=== PATIENT | male | born 1980 | race Caucasian/White ===

== ENCOUNTER 2023-11-20 12:42 | Emergency (ER) | payer MEDICAID, OTHER ==
[~2023-11-20] VITALS: Ht 170.2 cm; Wt 91.4 kg
[2023-11-20] MEDS ORDERED: DOXY-286 PO (14:07)
[2023-11-20 14:17] LABS: Urine Bacteria None Seen /hpf (None Seen)
[2023-11-20] MEDS: DOXYCYCLINE 100 MG TAB/CAP PO ONE (15:12)
[2023-11-20] MEDS: LIDOCAINE 1% HCL (LOCAL ANESTH.) INJ 20ML MDV ONE (15:12)
[2023-11-20] MEDS: cefTRIAXone SOD 1,000 MG VL IM ONE (15:12)
[2023-11-20] MEDS: cefTRIAXone W LIDOCAINE 500 MG IM IM ONE (15:12)
[2023-11-20 15:18] VITALS: BP 130/74; PULSE 95; RESP 18; TEMP 98.6; O2SAT 97
[2023-11-20 15:18] LABS: Urine Blood Negative /uL (Negative); Urine Clarity Clear (Clear); Urine Color Yellow (Yellow); Urine Mucus FEW (None Seen); Urine Protein, UAD Negative (Negative); Urine Specific Gravity 1.029 (1.001-1.035); Urine Urobilinogen Normal (Negative); Urine WBC 48 /hpf (0 - 3)
== END 2023-11-20 15:20 | disposition home or self-care (01) ==
LOC: ER 12:42
DX: R36.9 Urethral discharge, unspecified (principal); R30.0 Dysuria; Z88.5 Allergy status to narcotic agent
CPT/HCPCS: 81001; 87491; 87591; 96372; 99283; J0696; J2001

== ENCOUNTER 2024-12-02 07:03 | Emergency (ER) | payer MEDICAID ==
[~2024-12-02] VITALS: Ht 170.2 cm; Wt 87.9 kg
[~2024-12-02 07:03] MED LIST: DOXY-286 PO
[2024-12-02 07:16] VITALS: BP 125/97; PULSE 99; RESP 17; TEMP 98; O2SAT 97
--- NOTE | 2024-12-03 06:35 | ECG ---
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
== END 2024-12-02 08:25 | disposition left against medical advice (07) ==
LOC: ER 07:03
DX: R07.89 Other chest pain (principal); Z53.21 Procedure and treatment not carried out due to patient leaving prior to being seen by health care provider
CPT/HCPCS: 93005

== ENCOUNTER 2025-02-12 03:51 | Emergency (ER) | payer SELFPAY ==
[~2025-02-12] VITALS: Ht 170.2 cm; Wt 90.0 kg
--- NOTE | 2025-02-12 04:01 | ED.PDOC ---
Eye-HPI HPI Comments pt came to the er with cc of ear ache x2day 12/27 pain, pt is a&ox4 rr even and regular no distress noted at this time. pt denies n/v/d cp sob, OR DIZZINESS Chief Complaint: Earache Time Seen by MD: 03:53 Primary Care Provider: JESSICA Reviewed Notes: Nurses Notes, Medications, Allergies Allergies: Coded Allergies: NO KNOWN ALLERGIES (Unverified , 02/12/25) Home Meds Active Scripts Acxphmzn-Wkbivjcbk-Jk (Otic) (Cortisporin Otic Susp) [address], 4 DROP LEFT EAR TID for 7 Days, #10 ML Prov:ROSAURA GARDINER [facility] 02/12/25 Fenofibrate (FENOFIBRATE) 145 Mg Tab, 1 TAB PO DAILY for 30 Days, #30 TAB Prov:ROSAURA GARDINER [facility] 02/12/25 Doxycycline Hyclate (DOXYCYCLINE HYCLATE) 100 Mg Tab, 100 MG PO BID for 7 Days, #14 TAB Prov:RAMO LANDRY MD 11/20/23 Information Source: Patient Mode of Arrival: Ambulatory Past Medical History PAST MEDICAL HISTORY: Denies Surgical History: Denies all surgeries Family History Family History: Reviewed,noncontributory to illness Social History Smoker: Non-Smoker Alcohol: Denies ETOH Use Drugs: Denies Drug Use Lives In: Home All Other Systems: Reviewed and Negative (SEE HPI) Physical Exam General Appearance: No Apparent Distress, Normal HEENT: Pharynx Normal, TMs Normal, Other (EAR CANAL EDEMATOUS WITH ERYTHEMA NO NOTED DRAINAGE TM INTACT) Neck: Full Range of Motion, Non-Tender Respiratory: Lungs Clear, No Respiratory Distress, Normal Breath Sounds Cardiovascular: JVD, No Edema, No Murmur, Normal Peripheral Pulses, Regular Rate/Rhythm Breast Exam: Deferred Gastrointestinal: Non Tender, Soft Genitalia: Deferred Pelvic: Deferred Rectal: Deferred Extremities: Normal capillary refill, Normal range of motion Musculoskeletal : Apperance: Normal Neurologic: Alert, No Motor Deficits, Normal Affect, Normal Mood, No Sensory Deficits Cerebellar Function: Normal Reflexes: NOT DONE Skin: Dry, Normal Color, Warm Lymphatic: No Adenopathy Was a procedure done? Was a procedure done?: No EENT DIFF Eye: N/A Ear: Cerumen Impaction, Foreign Body, Otitis Externa, Barotrauma, Otitis Media, Perforation, Dental, Pharyngitis X-Ray, Labs, Meds, VS Vital Signs Date Time Temp Pulse Resp B/P (MAP) Pulse Ox O2 Delivery O2 Flow Rate FiO2 02/12/25 03:53 97.9 89 18 157/101 100 97.9 X-Ray, Labs, Meds, VS Comment GIVEN AZITHROMYCIN AND PREDNISONE ALSO NORCO FOR THE PAIN SCRIPT TRIAL OF ANTIBIOTIC DROPS ADVISED TO TAKE MEDICATION PRESCRIBED SIDE EFFECTS DISCUSSED ADVISED TO AVOID UNDER WATER ACTIVITY WHILE WITH INFECTION. FOLLOW UP WITH YOUR PCP IN 2-3 DAYS NECESSARY ER RETURN PRECAUTIONS GIVEN PATIENT INDICATES UNDERSTANDING AGREES WITH DISCHARGE PLAN OF CARE Time of 1ST Reevaluation: 04:01 Reevaluation 1ST: Unchanged Time of 2ND Reevaluation: 04:28 Reevaluation 2ND: Improved Patient Education/Counseling: Diagnosis, Treatment, Prognosis, Need For Follow Up Family Education/Counseling: No Family Present SEPSIS Sepsis Screen Date sepsis recognized/suspect: Feb 12, 2025 Time Sepsis recognized/suspect: 0357 Recent Procedure: No On Antibiotic Therapy: No Respiratory Rate >20: No Heart Rate >90: No Temp<36 C (96.8 F) or >38.3 C: No SBP <90 or MAP <65 mmHG: No New Acute Mental Status Change: No Is the patient on CPAP, BIPAP,: No Vital Signs Date Time Temp Pulse Resp B/P (MAP) Pulse Ox O2 Delivery O2 Flow Rate FiO2 02/12/25 03:53 97.9 89 18 157/101 100 97.9 Departure 1 Departure Time of Disposition: 04:28 Impression: Primary Impression: Otitis externa Qualified Codes: H60.502 - Unspecified acute noninfective otitis externa, left ear Disposition: 01 HOME / SELF CARE / HOMELESS Condition: Stable e-Prescriptions Vmatoczy-Iiwovddde-Oa (Otic) (Cortisporin Otic Susp) [address] 4 DROP LEFT EAR TID for 7 Days, #10 ML Prov: ROSAURA GARDINER 02/12/25 Fenofibrate (FENOFIBRATE) 145 Mg Tab 1 TAB PO DAILY for 30 Days, #30 TAB Prov: ROSAURA GARDINER 02/12/25 Discharged With: Self Critical Care Note Critical Care Time?: No Stability Stability form required: ROSAURA Valle Feb 12, 2025 04:01
[2025-02-12] MEDS ORDERED: FENO145T27 PO (04:31)
[2025-02-12] MEDS ORDERED: COROSUS LEFT EAR (04:31)
[2025-02-12 04:51] VITALS: BP 123/91; PULSE 89; RESP 14; TEMP 98.6; O2SAT 95
[2025-02-12] MEDS: predniSONE 20 MG TAB PO ONE (04:55)
[2025-02-12] MEDS: HYDROcodone-ACET 5/325MG TAB PO ONE (04:55)
[2025-02-12] MEDS: AZITHROMYCIN 250 MG TAB PO ONE (04:56)
== END 2025-02-12 04:31 | disposition home or self-care (01) ==
LOC: ER 03:51
DX: H60.92 Unspecified otitis externa, left ear (principal); Z79.899 Other long term (current) drug therapy
CPT/HCPCS: 99284; J7512

== ENCOUNTER 2025-02-17 18:22 | Emergency (ER) | payer MEDICAID ==
[~2025-02-17] VITALS: Ht 170.2 cm; Wt 92.8 kg
[~2025-02-17 18:22] MED LIST changes: +COROSUS LEFT EAR; +FENO145T27 PO
[2025-02-17 18:26] VITALS: TEMP 99.2
[2025-02-17 18:43] VITALS: BP 124/84; PULSE 130; RESP 18; O2SAT 98
[2025-02-17] MEDS: predniSONE 20 MG TAB PO ONE (18:53)
[2025-02-17] MEDS: AMOXICILLIN/CLAVUL 875 MG TAB PO ONE (18:53)
[2025-02-17] MEDS ORDERED: ACET500T58 PO (18:56)
[2025-02-17] MEDS ORDERED: PRED20TA2 PO (18:56)
[2025-02-17] MEDS ORDERED: AMOX875T4 PO (18:56)
--- NOTE | 2025-02-17 18:56 | ED.PDOC ---
Eye-HPI HPI Comments 44-year-old male presents to ER with complaints of sore throat pain x1 day. Patient reports 7/10 sore throat pain x1 day and denies use of medications for current symptoms. Patient presents to ER afebrile, in no distress. Denies fever, body aches, chills, shortness of breath, nausea/vomiting, voice changes, cough or any further symptoms/complaints Chief Complaint: Sore Throat Time Seen by MD: 18:35 Primary Care Provider: JESSICA Reviewed Notes: Nurses Notes, Medications, Allergies Allergies: Coded Allergies: NO KNOWN ALLERGIES (Unverified , 02/12/25) Home Meds Active Scripts Prednisone (Prednisone) 20 Mg Tab, 20 MG PO BID for 5 Days, #10 TAB 0 Refills Prov:VIKAS PENNINGTON 02/17/25 Acetaminophen (Acetaminophen) 500 Mg Tab, 500 MG PO Q4HPRN, #30 TAB 0 Refills Prov:VIKAS PENNINGTON 02/17/25 Amoxicillin & Pot Clavulanate (Amoxicillin/Potassium Cla) 875 Mg Tab, 1 TAB PO BID for 10 Days, #20 TAB 0 Refills Prov:VIKAS PENNINGTON 02/17/25 Deijjvqc-Vwzbimbze-Lj (Otic) (Cortisporin Otic Susp) [address], 4 DROP LEFT EAR TID for 7 Days, #10 ML Prov:ROSAURA GARDINER 02/12/25 Fenofibrate (FENOFIBRATE) 145 Mg Tab, 1 TAB PO DAILY for 30 Days, #30 TAB Prov:ROSAURA GARDINER 02/12/25 Doxycycline Hyclate (DOXYCYCLINE HYCLATE) 100 Mg Tab, 100 MG PO BID for 7 Days, #14 TAB Prov:RAMO LANDRY MD 11/20/23 Information Source: Patient Mode of Arrival: Ambulatory Past Medical History PAST MEDICAL HISTORY: Denies Surgical History: Denies all surgeries Family History Family History: Unknown Social History Smoker: Non-Smoker Alcohol: Denies ETOH Use Drugs: Denies Drug Use Lives In: Home Constitutional: denies: chills, diaphoresis, fatigue, fever, malaise, sweats, weakness, others EENTM: reports: others (As stated in HPI) Respiratory: denies: cough, hemoptysis, orthopnea, SOB at rest, shortness of breath, SOB with excertion, stridor, wheezing, others Cardiovascular: denies: chest pain, dizzy spells, diaphoresis, Dyspnea on exertion, edema, irregular heart beat, left arm pain, lightheadedness, palpitations, PND, syncope, others Gastrointestinal: denies: abdomen distended, abdominal pain, blood streaked bowels, constipated, diarrhea, dysphagia, difficulty swallowing, hematemesis, melena, nausea, poor appetite, poor fluid intake, rectal bleeding, rectal pain, vomiting, others Genitourinary: denies: burning, dysuria, flank pain, frequency, hematuria, incontinence, penile discharge, penile sore, pain, testicle pain, testicle swelling, urgency, others Neurological: denies: dizziness, fainting, headache, left sided numbness, left sided weakness, numbness, paresthesia, pre-existing deficit, right sided numbness, right sided weakness, seizure, speech problems, tingling, tremors, weakness, others Musculoskeletal: denies: back pain, gout, joint pain, joint swelling, muscle pain, muscle stiffness, neck pain, others Integumetry: denies: bruises, change in color, change in hair/nails, dryness, laceration, lesions, lumps, rash, wounds, others Allergic/Immunocompromised: denies: Difficulty Healing, Frequent Infections, Hives, Itching, others Hematologic/Lymphatic: denies: anemia, blood clots, easy bleeding, easy bruising, swollen glands, others Endocrine: denies: excessive hunger, excessive sweating, excessive thirst, excessive urination, flushing, intolerance to cold, intolerance to heat, unexplained weight gain, unexplained weight loss, others Psychiatric: denies: anxiety, bipolar disorder, depression, hopeless, panic disorder, schizophrenia, sleepless, suicidal, others Physical Exam General Appearance: No Apparent Distress, Obese HEENT: Pharyngeal Erythema (Mild tonsillar swelling/erythema noted bilaterally with white exudates noted bilateral tonsils. Uvula-normal), TMs Normal Neck: Full Range of Motion, Non-Tender, Normal Respiratory: Chest Non-Tender, Lungs Clear, No Accessory Muscle Use, No Respiratory Distress, Normal Breath Sounds Cardiovascular: No Murmur, No Gallop, Tachycardia Breast Exam: Deferred Gastrointestinal: NOT DONE Genitalia: Deferred Pelvic: Deferred Rectal: Deferred Extremities: Normal capillary refill, Normal range of motion Neurologic: Alert, No Motor Deficits, Normal Affect, Normal Mood, No Sensory Deficits Cerebellar Function: Normal Reflexes: Normal Skin: Dry, Normal Color, Warm Lymphatic: No Adenopathy Was a procedure done? Was a procedure done?: No Sedation Sedation?: No EENT DIFF Eye: N/A Sore Throat: Epiglottitis, Mononeucleosis, Peritonsillar Abscess, URI X-Ray, Labs, Meds, VS Vital Signs Date Time Temp Pulse Resp B/P (MAP) Pulse Ox O2 Delivery O2 Flow Rate FiO2 02/17/25 18:43 130 18 124/84 (97) 98 02/17/25 18:43 130 18 98 Room Air 02/17/25 18:26 99.2 112 18 136/97 95 99.2 Current Medications Medications (Trade) Dose Ordered Sig/Aaron Route Start Time Stop Time Status Last Admin Amoxicillin/ Clavulanate Potassium (Augmentin Tablet) 875 mg ONCE ONCE PO 02/17/25 19:00 02/17/25 19:01 DC 02/17/25 18:53 Prednisone 20 mg ONCE ONCE PO 02/17/25 19:00 02/17/25 19:01 DC 02/17/25 18:53 Augmentin 875 mg ordered Prednisone 20 mg p.o. ordered Patient tolerating p.o. intake well, well appearing and in no distress prior to discharge Advised to drink plenty of fluids Advised to follow up with PCP in 1-2 days Patient verbalized understanding and agreeable with current plan of care Advised to return to ER immediately if symptoms worsen Time of 1ST Reevaluation: 18:34 Reevaluation 1ST: N/A Patient Education/Counseling: Diagnosis, Treatment, Prognosis, Need For Follow Up Family Education/Counseling: No Family Present SEPSIS Sepsis Screen Date sepsis recognized/suspect: Feb 17, 2025 Time Sepsis recognized/suspect: 1827 Recent Procedure: No On Antibiotic Therapy: No Respiratory Rate >20: No Heart Rate >90: Yes Temp<36 C (96.8 F) or >38.3 C: No SBP <90 or MAP <65 mmHG: No New Acute Mental Status Change: No Is the patient on CPAP, BIPAP,: No Vital Signs Date Time Temp Pulse Resp B/P (MAP) Pulse Ox O2 Delivery O2 Flow Rate FiO2 02/17/25 18:43 130 18 124/84 (97) 98 02/17/25 18:43 130 18 98 Room Air 02/17/25 18:26 99.2 112 18 136/97 95 99.2 Medications Medications Dose Ordered Sig/Aaron Route Start Time Stop Time Status Last Admin Dose Admin Amoxicillin/ Clavulanate Potassium 875 mg ONCE ONCE PO 02/17/25 19:00 02/17/25 19:01 DC 02/17/25 18:53 Prednisone 20 mg ONCE ONCE PO 02/17/25 19:00 02/17/25 19:01 DC 02/17/25 18:53 Departure 1 Departure Time of Disposition: 18:54 Impression: Primary Impression: Acute tonsillitis Qualified Codes: J03.90 - Acute tonsillitis, unspecified Disposition: HOME / SELF CARE / HOMELESS Condition: Stable e-Prescriptions Prednisone (Prednisone) 20 Mg Tab 20 MG PO BID for 5 Days, #10 TAB 0 Refills Prov: VIKAS PENNINGTON 02/17/25 Acetaminophen (Acetaminophen) 500 Mg Tab 500 MG PO Q4HPRN, #30 TAB 0 Refills Prov: VIKAS PENNINGTON 02/17/25 Amoxicillin & Pot Clavulanate (Amoxicillin/Potassium Cla) 875 Mg Tab 1 TAB PO BID for 10 Days, #20 TAB 0 Refills Prov: VIKAS PENNINGTON 02/17/25 Discharged With: Self Critical Care Note Critical Care Time?: No Stability Stability form required: No Heart Score Heart Score: Heart Score Response (Comments) Value History N/A 0 EKG N/A 0 Age N/A 0 Risk Factors N/A 0 Troponin N/A 0 Total 0 VIKAS PENNINGTON Feb 17, 2025 18:56
== END 2025-02-17 19:02 | disposition home or self-care (01) ==
LOC: ER 18:22
DX: J03.90 Acute tonsillitis, unspecified (principal); Z79.899 Other long term (current) drug therapy
CPT/HCPCS: 99283; J7512